=== PATIENT | female | born 1985 | race Caucasian/White ===

== ENCOUNTER 2017-09-23 14:36 | Emergency (ER) | payer OTHER | END 2017-09-23 16:26 | disposition home or self-care (01) | LOC: FTE 14:36 | DX: L02.01 Cutaneous abscess of face (principal); J44.9 Chronic obstructive pulmonary disease, unspecified; F17.210 Nicotine dependence, cigarettes, uncomplicated; I25.2 Old myocardial infarction; Z85.6 Personal history of leukemia | CPT/HCPCS: 99284 ==

== ENCOUNTER 2017-09-25 21:50 | Emergency (ER) | payer OTHER | END 2017-09-26 00:46 | disposition home or self-care (01) | LOC: FTE 21:50 | DX: L02.01 Cutaneous abscess of face (principal); J44.9 Chronic obstructive pulmonary disease, unspecified; F17.210 Nicotine dependence, cigarettes, uncomplicated; Z86.14 Personal history of Methicillin resistant Staphylococcus aureus infection | CPT/HCPCS: 99283; Z7502 ==

== ENCOUNTER 2018-04-30 00:32 | Emergency (ER) | payer SELFPAY, OTHER | END 2018-04-30 00:51 | disposition left against medical advice (07) | LOC: FTE 00:32 | DX: Z53.21 Procedure and treatment not carried out due to patient leaving prior to being seen by health care provider (principal) ==

== ENCOUNTER 2018-10-11 04:30 | Emergency (ER) | payer OTHER | END 2018-10-11 06:22 | disposition home or self-care (01) | LOC: FTE 06:22 | DX: S29.001A Unspecified injury of muscle and tendon of front wall of thorax, initial encounter (principal); J44.9 Chronic obstructive pulmonary disease, unspecified; J45.909 Unspecified asthma, uncomplicated; F17.210 Nicotine dependence, cigarettes, uncomplicated; W06.XXXA Fall from bed, initial encounter; Y92.9 Unspecified place or not applicable | CPT/HCPCS: 71045; 99283-25 ==

== ENCOUNTER 2019-03-20 13:01 | Emergency (ER) | payer OTHER ==
[2019-03-20] MEDS: KETOROLAC 30 MG INJ IM (14:11)
[2019-03-20] MEDS: DEXAMETHASONE 10 MG/ML 1 ML INJ IM (14:12)
== END 2019-03-20 15:23 | disposition home or self-care (01) ==
LOC: FTE 13:01
DX: S20.229A Contusion of unspecified back wall of thorax, initial encounter (principal); J44.9 Chronic obstructive pulmonary disease, unspecified; W06.XXXA Fall from bed, initial encounter; Y92.9 Unspecified place or not applicable; Z87.891 Personal history of nicotine dependence
CPT/HCPCS: 72072; 72100; 81025; 96372; 99284-25

== ENCOUNTER 2019-04-11 13:57 | Emergency (ER) | payer SELFPAY, OTHER | END 2019-04-11 16:06 | disposition home or self-care (01) | LOC: FTE 13:57 | DX: R05 Cough (principal); J44.9 Chronic obstructive pulmonary disease, unspecified; C95.90 Leukemia, unspecified not having achieved remission; F17.210 Nicotine dependence, cigarettes, uncomplicated; I25.2 Old myocardial infarction | CPT/HCPCS: 71045; 84703; 93005; 99284-25 ==